=== PATIENT | female | born 1960 | race Caucasian/White ===

== ENCOUNTER 2024-06-21 09:40 | Outpatient (AMB) | payer MEDICAID, SELFPAY ==
[2024-06-21 10:05] VITALS: BP 154/92; PULSE 80; RESP 18; TEMP 36.5; O2SAT 97; BMI 37.8
--- NOTE | 2024-06-21 10:05 | PD.ORTHCLVIS ---
Vital signs 06/21/24 10:05 Height 1.68 m Height Method Stated Weight 106.396 kg Weight Measurement Method Standing Scale BMI 37.8 BP 154/92 H Blood Pressure Source Automatic Cuff Blood Pressure Location Right Upper Arm Position Sitting Respiration 18 Pulse 80 Pulse Source Monitor Temp 97.7 F Temp Source Temporal Artery Scan Pulse Oximetry (%) 97 Oxygen Delivery Method Room Air Med/Allergies Allergies & Medications Allergies No Known Drug Allergies Allergy (Verified 06/21/24 10:05) Medication Reconciliation Unobtainable 06/21/24 [History Confirmed 06/21/24] Exam Exam Patient is in no acute distress and is cooperative with the examination today. Patient has a normal mood and affect. Breathing is nonlabored. In no respiratory distress. Bilateral extremities were evaluated and demonstrates sensation intact to light touch. Palpable pedal pulses are present. No significant edema is present. Left knee incisions clean dry intact. Range of motion 0 to 110 degrees. Right knee demonstrates varus deformity. He is tender to palpation medially. Range of motion is 0 to 100 degrees Assessment and Plan Problem List (1) Arthritis of right knee: Status: Acute Plan: Patient is a 63-year-old female with right knee pain and right knee arthritis. The pain is affecting her quality life and happiness. She is tried some conservative therapy. We recommend injections as well as continued weight loss and anti-inflammatories. We will get her set up for a right knee cortisone injection at the next visit. 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 Level 3 ([id number]) MA Intake Visit Data Collection New Patient or Established: New Patient (never been to [facility]) Reason for Visit:: RIGHT KNEE PAIN Seen by Clinical Staff ONLY (RN/MA): No Verbal consent obtained for Telemed visit?: No Batter Scaler Required: No PCP or OBGYN visit in last 3 months: Yes Hx Now: No Do You Feel Safe at Home: Yes Authorities Contacted: N/A Questionairres Past Medical History Past Medical History Have you ever been diagnosed with any of the following: Cardiology Problems Hypertension: Yes Respiratory Problems Smoking: No Smoking Cessation Counseling: No Smoking Exposure: No Subjective Visit Visit for: new patient and knee Immunization / Flu Flu Vaccine in the Last 12 Months: Yes Flu Vaccine Exclusion Criteria: Already Received History of Present Illness Chief complaint: RIGHT KNEE PAIN Date of injury / onset of symptoms: 3 YEARS Date of 1st surgery (if applicable): LEFT KNEE DONE Kay is a pleasant 63-year-old female with right knee pain for 3 years. She had her left knee replaced in 2021 which is doing well. She has not had any physical therapy or injections in her right knee. She takes Advil. Nonweightbearing x-[facility] were done at [facility]. She is on Ozempic for diabetes, last A1c was 5.6%. BMI is 37%. She has been losing weight. Personal History Occupation: UNEMPLOYED Red flag PMH: BMI and none BMI Counceling provided: Yes Pain Pain level (0-10): 7 Pain duration: CONSTANT Pain location: inside (medial) Pain quality: sharp, aching and burning Pain timing: night, increases with activity and stairs Associated signs & symptoms: none Ambulatory data Ambulatory device: none Treatments Improvement with previous injections: No Improvement with PT: No Improvement with NSAIDS: no Review of Systems Review of Systems: All systems negative unless otherwise noted in HPI.
--- NOTE | 2024-06-21 10:26 | XR_ITS ---
Examination: Bilateral knees 2 views Right lateral knee left lateral knee 2 views Bilateral axial knees single view Technique: Bilateral AP knees standing single view, bilateral PA knees standing single view Standing right lateral knee left lateral knee 2 views Bilateral axial knees single view Exam date and time: June 21, 2024 sincerely hours Indications: Right knee pain beginning 3 years ago Findings: Moderate osteopenia Severe narrowing medial joint space right knee No fracture Total left knee arthroplasty. Satisfactory alignment. No fracture. No displacement of the prosthetic components Impression: Severe narrowing [id number] medial joint space right knee.
== END 2024-06-21 10:35 | disposition home or self-care (01) ==
PROVIDERS: Supervising Provider Orthopaedic Surgery Adult Reconstructive Orthopaedic Surgery; Visit Provider Orthopaedic Surgery Adult Reconstructive Orthopaedic Surgery
DX: M17.11 Unilateral primary osteoarthritis, right knee (principal); M25.561 Pain in right knee; I10 Essential (primary) hypertension; E11.9 Type 2 diabetes mellitus without complications
CPT/HCPCS: 73564; 99203; G0463

== ENCOUNTER 2024-07-07 14:46 | Outpatient (AMB) | payer MEDICAID, SELFPAY ==
--- NOTE | 2024-07-07 15:19 | PD.ORTHCLVIS ---
Vital signs 07/07/24 15:20 Height 1.68 m Height Method Stated Weight 105.233 kg Weight Measurement Method Standing Scale BMI 37.3 BP 165/101 H Blood Pressure Source Automatic Cuff Blood Pressure Location Left Upper Arm Position Sitting Respiration 19 Pulse 86 Pulse Source Monitor Temp 98.0 F Temp Source Temporal Artery Scan Pulse Oximetry (%) 97 Oxygen Delivery Method Room Air Med/Allergies Allergies & Medications Allergies No Known Drug Allergies Allergy (Verified 07/07/24 15:21) Medication Reconciliation Unobtainable 06/21/24 [History Confirmed 07/07/24] Exam Exam Patient is in no acute distress and is cooperative with the examination today. Patient has a normal mood and affect. Breathing is nonlabored. In no respiratory distress. Bilateral extremities were evaluated and demonstrates sensation intact to light touch. Palpable pedal pulses are present. No significant edema is present. Left knee incisions clean dry intact. Range of motion 0 to 110 degrees. Right knee demonstrates varus deformity. He is tender to palpation medially. Range of motion is 0 to 100 degrees Assessment and Plan Problem List (1) Arthritis of right knee: Status: Acute Plan: Patient is a 63-year-old female with right knee pain and right knee arthritis. The pain is affecting her quality life and happiness. She has tried some conservative therapy. We recommend injections as well as continued weight loss and anti-inflammatories. Recommend knee cortisone injection as patient would like to proceed with conservative treatment at this time. The risks and benefits of the procedure were reviewed with the patient and patient gave verbal consent to continue with the procedure. Procedure: performed by Dr. Dubon Using sterile technique the Right knee was thoroughly prepped with alcohol, and approximately 1 cc of Kenalog 40 mg/mL and 4 cc of 1% lidocaine was injected without resistance into the medial tibial femoral joint space. The patient tolerated the procedure. Office Procedures GNS Level of Care Nursing/Assessment Patient Status: Established Patient Nursing Assessment/Reassesment: Medication Reconciliation, Update PMH in EMR and Vital Signs Coordination of Care: Complex Care and Chronic Disease 1-5, Education Complex Pt/Fam, Consent,records obtained, informed consent, Results/Orders obtained and Staff clarify orders Established Patient Charge Established Patient Point Assignment: 95 Established Patient Point Charge: EP Level 3 (80-115) Surgical Proc/IM SQ injection Major Surgical Procedure: Yes (KNEE INJECTION ) Medication Given Medication Given Medication Given: Yes Documented Dose Given: 4 Route: Infiitration Medication Given Medication Given Medication Given: Yes Documented Dose Given: 1 Route: Infiitration Office Meds lidocaine HCl 10 mg/mL (1 %) injection solution Performing Provider: Joseph Dubon MD Performing Location: [facility] Administered by: Joseph Dubon MD on 07/07/24 16:12 Dose Route Admin Location Dispensed Lot Number Expiration Date ND Collection Officer 200 mg Infiltration KNEE 20 mL [id number] 09/26/27 17972-251-97 [facility] triamcinolone acetonide 40 mg/mL suspension for injection Performing Provider: Joseph Dubon MD Performing Location: [facility] Administered by: Joseph Dubon MD on 07/07/24 16:12 Dose Route Admin Location Dispensed Lot Number Expiration Date ND Collection Officer 40 mg IM KNEE 1 mL [id number] 01/25/26 5930-7826-33 TEVA PARENTERAL MA Intake Visit Data Collection New Patient or Established: Established Patient (seen at [facility] within 3 years) Reason for Visit:: XRAY RESULTS/KNEE PAIN Seen by Clinical Staff ONLY (RN/MA): No 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 PCP or OBGYN visit in last 3 months: Yes Hx Now: No Do You Feel Safe at Home: Yes Authorities Contacted: N/A Questionairres Past Medical History Past Medical History Have you ever been diagnosed with any of the following: Cardiology Problems Hypertension: Yes Respiratory Problems Smoking: No Smoking Cessation Counseling: No Smoking Exposure: No Subjective Visit Visit for: follow up visit and knee Immunization / Flu Flu Vaccine in the Last 12 Months: No Flu Vaccine Exclusion Criteria: No Exclusion Criteria History of Present Illness Chief complaint: RIGHT KNEE PAIN Date of injury / onset of symptoms: 3 YEARS Date of 1st surgery (if applicable): LEFT KNEE DONE Kay is a pleasant 63-year-old female with right knee pain for 3 years. She had her left knee replaced in 2021 which is doing well. She has not had any physical therapy or injections in her right knee. She takes Advil. Nonweightbearing x-rays were done at [facility]. She is on Ozempic for diabetes, last A1c was 5.6%. BMI is 37%. She has been losing weight. Personal History Occupation: UNEMPLOYED Red flag PMH: BMI and none BMI Counceling provided: Yes Pain Pain level (0-10): 9 Pain duration: CONSTANT Pain location: inside (medial) and outside (lateral) Pain quality: dull and aching Pain timing: night, increases with activity and stairs Associated signs & symptoms: none Ambulatory data Ambulatory device: none Treatments Improvement with previous injections: No Improvement with PT: No Improvement with NSAIDS: no Review of Systems Review of Systems: All systems negative unless otherwise noted in HPI.
[2024-07-07 15:20] VITALS: BP 165/101; PULSE 86; RESP 19; TEMP 36.7; O2SAT 97; BMI 37.3
== END 2024-07-07 15:35 | disposition home or self-care (01) ==
LOC: HODSRG 14:46
PROVIDERS: Supervising Provider Orthopaedic Surgery Adult Reconstructive Orthopaedic Surgery; Visit Provider Orthopaedic Surgery Adult Reconstructive Orthopaedic Surgery
DX: M17.11 Unilateral primary osteoarthritis, right knee (principal); E11.9 Type 2 diabetes mellitus without complications; I10 Essential (primary) hypertension
CPT/HCPCS: 20610; 99213; J3301; J3490; G0463

== ENCOUNTER 2024-08-18 10:09 | Outpatient (AMB) | payer MEDICAID, SELFPAY ==
[2024-08-18 10:39] VITALS: BP 154/95; PULSE 82; RESP 18; TEMP 36.8; O2SAT 91; BMI 36.6
--- NOTE | 2024-08-18 10:39 | ORTHONT_ITS ---
Vital signs 08/18/24 10:39 Height 1.68 m Height Method Stated Weight 103.561 kg Weight Measurement Method Standing Scale BMI 36.6 BP 154/95 H Blood Pressure Source Automatic Cuff Blood Pressure Location Right Upper Arm Position Sitting Respiration 18 Pulse 82 Pulse Source Monitor Temp 98.3 F Temp Source Temporal Artery Scan Pulse Oximetry (%) 91 L Oxygen Delivery Method Room Air Med/Allergies Allergies & Medications Allergies No Known Drug Allergies Allergy (Verified 08/18/24 10:40) Medication Reconciliation Unobtainable 06/21/24 [History Confirmed 08/18/24] Exam Exam Patient is in no acute distress and is cooperative with the examination today. Patient has a normal mood and affect. Breathing is nonlabored. In no respiratory distress. Bilateral extremities were evaluated and demonstrates sensation intact to light touch. Palpable pedal pulses are present. No significant edema is present. Left knee incisions clean dry intact. Range of motion 0 to 110 degrees. Right knee demonstrates varus deformity. He is tender to palpation medially. Range of motion is 0 to 100 degrees Right knee xrays demonstrate significant joint space narrowing and osteophytes. Left knee demonstrates a cemented total knee replacement good alignment and position Assessment and Plan Problem List (1) Arthritis of right knee: Status: Acute Plan: Patient is a 63-year-old female with right knee pain and right knee arthritis. The pain is affecting her quality life and happiness. She has tried some conservative therapy. The last injection did not provide great relief and only lasted less than a month. She is also tried anti-inflammatories and home exercises. The nature and purpose of the total knee replacement, alternative method(s) of treatment, the material risks involved, and the possibility of complications were fully explained to the patient. The patient does NOT have any of the following contraindications to TKA: - Active infection of the knee joint, OR - Active systemic bacteremia, OR - Active skin infection or open wound at surgical site, OR - Neuropathic arthritis, OR - Severe, rapidly progressive neurological disease, OR - Severe medical condition that makes risks of surgery outweigh the potential benefit The patient was told the most common risks and complications associated with a total knee replacement include, but are not limited to: blood clots in the leg, fatal pulmonary embolism, dislocation of the prosthesis, intraoperative and postoperative fractures of the femur or tibia, infection, failure of the prosthesis or grafting materials, complications from anesthesia, reactions to blood transfusions, postoperative leg length inequality, instability of the knee replacement, nerve damage or injury, vascular injury, delayed wound healing, infection, other injury or even . In addition, there are risks associated with anesthesia given during this operation. Also, the patient was told that after undergoing a total knee replacement there may still be persistent pain or disability. The patient was informed that the success of this operation in part depends upon the mechanical devices which are going to be implanted and that these devices can fail or malfunction, and may need to be repaired or replaced and there are no guarantees as to the longevity of this device or its parts and that it or its parts could fail prematurely. The patient was also notified that during the course of surgery, there may be a need to use bone graft from donors, and that any bone graft used will be carefully screened for communicable diseases, including AIDS, hepatitis, Alberto-Creutzfeldt, or other diseases, but despite the screening procedures, there is a small chance that they could contract one of these diseases. Finally, the patient was asked to follow completely and fully with all advice and recommended treatments, and that recovery and ultimate outcome are affected by their compliance with recommended treatment. We discussed the risks, benefits and treatment alternatives, and the patient is interested in proceeding with surgery. We will try to set this up as expeditiously as possible. Office Procedures GNS Level of Care Nursing/Assessment Patient Status: Established Patient Nursing Assessment/Reassesment: Medication Reconciliation, Update PMH in EMR and Vital Signs Coordination of Care: Complex Care and Chronic Disease 1-5, Education Complex Pt/Fam, Consent,records obtained, informed consent, Lab and Imaging orders, Results/Orders obtained and Staff clarify orders Established Patient Charge Established Patient Point Assignment: 110 Established Patient Point Charge: EP Level 3 (80-115) MA Intake Visit Data Collection New Patient or Established: Established Patient (seen at [facility] within 3 years) Reason for Visit:: KNEE PAIN Seen by Clinical Staff ONLY (RN/MA): No Verbal consent obtained for Telemed visit?: No 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 PCP or OBGYN visit in last 3 months: Yes Hx Now: No Do You Feel Safe at Home: Yes Authorities Contacted: N/A Questionairres Past Medical History Past Medical History Have you ever been diagnosed with any of the following: Cardiology Problems Hypertension: Yes Respiratory Problems Smoking: No Smoking Cessation Counseling: No Smoking Exposure: No Subjective Visit Visit for: follow up visit and knee Immunization / Flu Flu Vaccine in the Last 12 Months: No Flu Vaccine Exclusion Criteria: No Exclusion Criteria History of Present Illness Chief complaint: KNEE PAIN Date of injury / onset of symptoms: 3 YEARS Date of 1st surgery (if applicable): LEFT KNEE DONE Kay is a pleasant 63-year-old female with right knee pain for 3 years. She had her left knee replaced in 2021 which is doing well. She has not had any physical therapy or injections in her right knee. She takes Advil. She is on Ozempic for diabetes, last A1c was 5.6%. BMI is 37%. She has been losing weight. She has tried ibuprofen as well. She has done home exercises for several months and is very active. Personal History Occupation: RETIRED Red flag PMH: BMI BMI Counceling provided: Yes Pain Pain level (0-10): 5 Pain duration: ALL DAY Pain location: anterior Pain quality: dull and aching Pain timing: increases with activity and stairs Associated signs & symptoms: none Ambulatory data Ambulatory device: none Treatments Improvement with previous injections: No Improvement with PT: No Improvement with NSAIDS: no Review of Systems Review of Systems: All systems negative unless otherwise noted in HPI.
== END 2024-08-18 10:57 | disposition home or self-care (01) ==
LOC: HODSRG 10:09
PROVIDERS: Supervising Provider Orthopaedic Surgery Adult Reconstructive Orthopaedic Surgery; Visit Provider Orthopaedic Surgery Adult Reconstructive Orthopaedic Surgery
DX: M17.11 Unilateral primary osteoarthritis, right knee (principal); M25.561 Pain in right knee; I10 Essential (primary) hypertension; E11.9 Type 2 diabetes mellitus without complications
CPT/HCPCS: 99213; G0463

== ENCOUNTER 2024-09-20 13:54 | Outpatient (AMB) | payer MEDICAID, SELFPAY ==
[2024-09-20 14:18] VITALS: BP 115/75; PULSE 76; RESP 18; TEMP 36.7; O2SAT 94; BMI 36.1
--- NOTE | 2024-09-20 14:18 | ORTHONT_ITS ---
Vital signs 09/20/24 14:18 Height 1.68 m Height Method Stated Weight 102.058 kg Weight Measurement Method Standing Scale BMI 36.1 BP 115/75 Blood Pressure Source Automatic Cuff Blood Pressure Location Right Upper Arm Position Sitting Respiration 18 Pulse 76 Pulse Source Monitor Temp 98.0 F Temp Source Temporal Artery Scan Pulse Oximetry (%) 94 L Oxygen Delivery Method Room Air Med/Allergies Allergies & Medications Allergies No Known Drug Allergies Allergy (Verified 09/20/24 14:18) Medication Reconciliation Unobtainable 06/21/24 [History Confirmed 09/20/24] Exam Exam Patient is in no acute distress and is cooperative with the examination today. Patient has a normal mood and affect. Breathing is nonlabored. In no respiratory distress. Bilateral extremities were evaluated and demonstrates sensation intact to light touch. Palpable pedal pulses are present. No significant edema is present. Left knee incisions clean dry intact. Range of motion 0 to 110 degrees. Right knee demonstrates varus deformity. He is tender to palpation medially. Range of motion is 0 to 100 degrees Right knee xrays demonstrate significant joint space narrowing and osteophytes. Left knee demonstrates a cemented total knee replacement good alignment and position Assessment and Plan Problem List (1) Arthritis of right knee: Status: Acute Plan: Patient is a 63-year-old female with right knee pain and right knee arthritis. The pain is affecting her quality life and happiness. She has tried some conservative therapy. The last injection did not provide great relief and only lasted less than a month. She is also tried anti-inflammatories and home exercises. The nature and purpose of the total knee replacement, alternative method(s) of treatment, the material risks involved, and the possibility of complications were fully explained to the patient. The patient does NOT have any of the following contraindications to TKA: - Active infection of the knee joint, OR - Active systemic bacteremia, OR - Active skin infection or open wound at surgical site, OR - Neuropathic arthritis, OR - Severe, rapidly progressive neurological disease, OR - Severe medical condition that makes risks of surgery outweigh the potential benefit The patient was told the most common risks and complications associated with a total knee replacement include, but are not limited to: blood clots in the leg, fatal pulmonary embolism, dislocation of the prosthesis, intraoperative and postoperative fractures of the femur or tibia, infection, failure of the prosthesis or grafting materials, complications from anesthesia, reactions to blood transfusions, postoperative leg length inequality, instability of the knee replacement, nerve damage or injury, vascular injury, delayed wound healing, infection, other injury or even . In addition, there are risks associated with anesthesia given during this operation. Also, the patient was told that after undergoing a total knee replacement there may still be persistent pain or disability. The patient was informed that the success of this operation in part depends upon the mechanical devices which are going to be implanted and that these devices can fail or malfunction, and may need to be repaired or replaced and there are no guarantees as to the longevity of this device or its parts and that it or its parts could fail prematurely. The patient was also notified that during the course of surgery, there may be a need to use bone graft from donors, and that any bone graft used will be carefully screened for communicable diseases, including AIDS, hepatitis, Alberto-Creutzfeldt, or other diseases, but despite the screening procedures, there is a small chance that they could contract one of these diseases. Finally, the patient was asked to follow completely and fully with all advice and recommended treatments, and that recovery and ultimate outcome are affected by their compliance with recommended treatment. We discussed the risks, benefits and treatment alternatives, and the patient is interested in proceeding with surgery. We will try to set this up as expeditiously as possible. Office Procedures GNS Level of Care Nursing/Assessment Patient Status: Established Patient Nursing Assessment/Reassesment: Medication Reconciliation, Update PMH in EMR and Vital Signs Coordination of Care: Complex Care and Chronic Disease 1-5, Education Complex Pt/Fam, Consent,records obtained, informed consent, 1 Ins Authorization, Results/Orders obtained and Staff clarify orders Established Patient Charge Established Patient Point Assignment: 110 Established Patient Point Charge: EP Level 3 (80-115) MA Intake Visit Data Collection New Patient or Established: Established Patient (seen at [facility] within 3 years) Reason for Visit:: PRE-OP Seen by Clinical Staff ONLY (RN/MA): No Verbal consent obtained for Telemed visit?: No 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: No PCP or OBGYN visit in last 3 months: Yes Hx Now: No Do You Feel Safe at Home: Yes Authorities Contacted: N/A Questionairres Past Medical History Past Medical History Have you ever been diagnosed with any of the following: Cardiology Problems Hypertension: Yes Respiratory Problems Smoking: No Smoking Cessation Counseling: No Smoking Exposure: No Subjective Visit Visit for: follow up visit and knee Immunization / Flu Flu Vaccine in the Last 12 Months: Yes Flu Vaccine Exclusion Criteria: No Exclusion Criteria and Already Received History of Present Illness Chief complaint: PRE-OP Date of injury / onset of symptoms: 3 YEARS Date of 1st surgery (if applicable): LEFT KNEE DONE Kay is a pleasant 63-year-old female with right knee pain for 3 years. She had her left knee replaced in 2021 which is doing well. She has not had any physical therapy or injections in her right knee. She takes Advil. She is on Ozempic for diabetes, last A1c was 5.6%. BMI is 37%. She has been losing weight. She has tried ibuprofen as well. She has done home exercises for several months and is very active. Personal History Occupation: RETIRED Red flag PMH: BMI BMI Counceling provided: Yes Pain Pain level (0-10): 8 Pain duration: ALL DAY Pain location: inside (medial), outside (lateral), anterior and posterior Pain quality: sharp, dull and aching Pain timing: increases with activity and stairs Associated signs & symptoms: none Ambulatory data Ambulatory device: none Treatments Improvement with previous injections: No Improvement with PT: No Improvement with NSAIDS: no Review of Systems Review of Systems: All systems negative unless otherwise noted in HPI.
== END 2024-09-20 14:40 | disposition home or self-care (01) ==
LOC: HODSRG 13:54
PROVIDERS: Supervising Provider Orthopaedic Surgery Adult Reconstructive Orthopaedic Surgery; Visit Provider Orthopaedic Surgery Adult Reconstructive Orthopaedic Surgery
DX: M17.11 Unilateral primary osteoarthritis, right knee (principal); M25.561 Pain in right knee; E11.9 Type 2 diabetes mellitus without complications
CPT/HCPCS: 99213; G0463

== ENCOUNTER → 2024-09-28 | Outpatient (CLI) | payer MEDICAID, SELFPAY ==
--- NOTE | 2024-09-28 09:50 | XR_ITS ---
Examination: CT right lower extremity without intravenous contrast, without contrast. 2-D sagittal reconstructions. 2-D coronal reconstructions. 3-D reconstructions. Date and time of exam:September 28, 2024 1023 hours INDICATIONS: Diagnosis right knee unilateral osteoarthritis right knee pain 2 years CTDI: vol (mGy):14.7 DLP: (mGycm):72 Technique: Multiple 1.25 mm axial sections of the right lower extremity without intravenous contrast have been obtained. 2-D sagittal and coronal reconstructions have been obtained. 3-D reconstructions have been obtained. Low dose protocols were performed. One or more of the following dose reduction techniques were used; automated exposure control, adjustment of the mA and/or KV according to patient size, use of iterative reconstruction technique. Findings: Significant osteopenia Moderate narrowing right hip joint No hip fracture or hip dislocation No avascular necrosis Advanced right knee tricompartment osteoarthritis Severe narrowing medial joint space Osteochondral defect in the medial tibial plateau, 7.5 mm No patellar dislocation IMPRESSION: Advanced right knee tricompartment osteoarthritis including severe narrowing medial joint space
== END | disposition home or self-care (01) ==
PROVIDERS: Referring Provider Orthopaedic Surgery Adult Reconstructive Orthopaedic Surgery; Visit Provider Orthopaedic Surgery Adult Reconstructive Orthopaedic Surgery
DX: M17.11 Unilateral primary osteoarthritis, right knee (principal); M25.861 Other specified joint disorders, right knee
CPT/HCPCS: 73700

== ENCOUNTER 2024-10-06 09:50 | Day surgery (SDC) | payer MEDICAID, SELFPAY ==
[2024-10-04 10:14] VITALS: BMI 35.9
[2024-10-04 11:26] LABS: Basophils # (Auto) 0.1 Thou/mm3 (0.0-0.2); Basophils % (Auto) 1 % (0-2.5); Eosinophils # (Auto) 0.3 Thou/mm3 (0.0-0.5); Eosinophils % (Auto) 4 % (0-10); Hematocrit 38.5 % (36.0-46.0); Hemoglobin 13.2 g/dL (12.0-16.0); Immature Granulocytes % (Auto) 0 % (0-0); Immature Granulocytes Auto 0.01 Thou/mm3 (0.00-0.00); Lymphocytes # (Auto) 2.1 Thou/mm3 (1.0-4.8); Lymphocytes % (Auto) 28 % (10-50); Mean Corpuscular HGB Conc 34.3 g/dl (31.0-37.0); Mean Corpuscular Hemoglobin 30.1 pg (25.0-35.0); Mean Corpuscular Volume 88 fL (80-100); Monocytes # (Auto) 0.5 Thou/mm3 (0.0-0.8); Monocytes % (Auto) 6 % (0-12); Neutrophils # (Auto) 4.4 Thou/mm3 (1.8-7.7); Neutrophils % (Auto) 61 % (37-80); Nucleated Red Blood Cell % 0 /100 WBC (0); Platelet Count 308 Thou/mm3 (140-440); RDW Standard Deviation 43.9 fL (36.4-46.3); Red Blood Count 4.39 Miln/mm3 (4.00-5.20); White Blood Count 7.3 Thou/mm3 (3.6-11.0)
[2024-10-04 11:34] LABS: Partial Thromboplastin Time 28.7 Seconds (22.0-36.0); Prothrombin Time 11.3 Seconds (9.0-12.2)
[2024-10-04 11:38] LABS: Alanine Aminotransferase 13 U/L (10-49); Albumin, Serum 4.9 gm/dL (3.4-4.8); Alkaline Phosphatase 136 U/L (46-116); Anion Gap 10 (7-16); BUN/Creatinine Ratio 14 Ratio (12-20); Bilirubin,Total 0.6 mg/dL (0.3-1.2); Blood Urea Nitrogen 11 mg/dL (9-23); Calcium 10.3 mg/dL (8.3-10.6); Calcium (Corrected) 10.3 mg/dL (8.5-10.1); Carbon Dioxide 24.3 mMol/L (20.0-31.0); Chloride 104 mMol/L (98-107); Creatinine (Component) 0.8 mg/dL (0.6-1.3); Estimated Creatinine Clearance 86.3 mL/min (>60); Globulin 2.5 gm/dL (2.3-3.5); Glucose 117 mg/dL (74-106); Osmolality,Calculated 276 (275-295); Potassium 4.6 mMol/L (3.4-5.1); Sodium 138 mMol/L (136-145); Total Protein 7.4 gm/dL (5.7-8.2); eGFR > 60 See Note
[2024-10-06] VITALS (12 sets, daily range): BP systolic 158–170; BP diastolic 88–101; PULSE 68–97; RESP 12–23; TEMP 36.4–36.6; O2SAT 95–100; BMI 35.7
[2024-10-06] MEDS: ACETAMINOPHEN 325 MG TABLET 650 MG PO (12:16)
[2024-10-06] MEDS: PREGABALIN 75 MG CAPSULE PO (12:16)
[2024-10-06] MEDS: MELOXICAM 7.5 MG TABLET PO (12:17)
[2024-10-06] MEDS: RINGERS LACTATED 1000 ML 1,000 ML 20 ML IV (12:17)
--- NOTE | 2024-10-06 14:16 | ESOP_ITS ---
Date of Procedure 10/06/24 Pre Op Diagnosis right knee osteoarthritis Post Op Diagnosis right knee osteoarthritis Procedure right [place] total knee replacement Findings full thickness cartilage loss and osteophytes Procedure Description Indication: The patient is a 63 year old who has a long history of right knee pain. X-rays show degenerative arthritis involving the knee. Over the past several years the patient has had increasing pain, progressive limitation in function. He has failed conservative measures including activity modification, physical therapy, injections, anti-inflammatories, and assistive devices. After a lengthy discussion of the risks and benefits, the patient presents now for total knee replacement. The nature and purpose of the total knee replacement, alternative method(s) of treatment, the material risks involved, and the possibility of complications were fully explained to the patient. The patient was told the most common risks and complications associated with a total knee replacement include, but are not limited to blood clots in the leg, fatal pulmonary embolism, dislocation of the prosthesis, intraoperative and postoperative fractures of the femur or tibia, infection, failure of the prosthesis or grafting materials, complications from anesthesia, reactions to blood transfusions, postoperative leg length inequality, instability of the knee replacement, nerve damage or injury, vascular injury, delayed wound healing, infections, other injury or even . In addition, there are risks associated with anesthesia given during this operation, temporary or permanent numbness on the skin lateral to the incision can be a complication unique to total knee surgery, and kneeling can be painful after knee replacement surgery. Also, the patient was told that after undergoing a total knee replacement there may still be pain or disability. We discussed with the patient that we will be using a robot-assisted technology. We discussed that there is a possibility of converting to manual instrumentation. The patient was informed that the success of this operation in part depends upon the mechanical devices which are going to be implanted and that these devices can fail or malfunction, and may need to be repaired or replaced and there are no guarantees as to the longevity of this device or its part and that it or its parts could fail prematurely. Finally, the patient was asked to follow completely and fully with all advice and recommended treatments, and that recovery and ultimate outcome are affected by their compliance with recommended treatment. Surgical technique: Patient was marked and consented in the pre-operative area. The patient was brought to the operating room and placed on the operating table in a supine position. Prior to positioning, a timeout procedure was performed between the surgeon, the anesthesiologist, and the nursing staff where the patient and the operative side were identified and confirmed. After adequate general anesthetic was obtained, the right lower extremity was prepped and draped in the usual sterile fashion. A weight based dose of Cefazolin were administered within 1 hour prior to incision. The robot was preregistered and calirated before the incision. The extremity was exsanguinated with an esmarch badge and tourniquet inflated to 250mmHg. A midline incision was made. A median parapatellar arthrotomy was made. The patella was subluxed laterally. A medial release was performed to expose the medial tibia. His femoral and tibial pins were placed through an intra incisional manner for both cases. Every effort was made to ensure that the distalmost aspect of the pin was hung in the second cortex. The arrays were then tightened several times to ensure that it was fixed for the remainder of the case. Both femoral and tibial checkpoints were then placed. We then went through the registration process of the bone. We then assessed the knee deformity and attempted to correct it. We also used the robot to aid in judging laxity in both extension and flexion. Final based on laxity and alignment we changed the preoperative assessment to obtain proper proper implant positioning and to correct deformity. Attention was then placed to the tibia. We made a tibial cut using the robot ensuring that both the MCL and the patella tendon were protected with retractors. We then went to the femur and made the posterior cut followed by the anterior cut and the anterior chamfer. The bone was then removed and we made a distal femur cut and a posterior chamfer cut. We verified all cuts. A trial reduction was performed with a size 4 femoral component and a size 4 ] keeled tibial component. The patella tracked centrally, and no lateral retinacular release was necessary. The trial implants were removed. The arrays, pins, and checkpoints were all removed. We performed a verification that all pins were removed. The cut bone surfaces were lavaged. A size4 right femoral component, a size 4] keeled tibial component were impacted into position. The knee was felt to be well balanced in the sagittal and coronal plane. The final 10mm cruciate- substituting articular insert was impacted into the tibial tray. The knee was brought out to full extension, flexed up to 120 degrees. It was stable to varus and valgus stress and appropriately balanced in flexion and extension. The wounds were copiously irrigated following deflation of tourniquet. The medial retinaculum was reapproximated with #1 vicryl and quill. The subcutaneous tissues were closed with 0 and 2-0 interrupted Vicryl. The skin was closed with 3-0 Monofilament V loc suture. A sterile dressing was applied. The patient was transferred to a bed and brought to recovery in stable condition. The patient tolerated the procedure well. There were no intraoperative complications. Sponge and needle counts were correct times 2. As the attending surgeon, Chirag tidwell I was present and performed the entire operation. Grafts/Implants Size 4 CR Femur Size 4 Tibia 10]mm poly CS Anesthesia GETA Implants saloni Pathology / specimen None Estimated Blood Loss 150 Condition Stable Disposition same day Surgeon Joseph Dubon MD Surgical Staff Operation Date: 10/06/24 14:30 <No data on this case meets the specified criteria>
--- NOTE | 2024-10-06 14:16 | XR_ITS ---
Examination: Right knee 2 views TECHNIQUE: AP lateral right knee 2 views Date and time: October 06, 2024 1654 hours INDICATIONS: Postop knee replacement FINDINGS: Total right knee arthroplasty. Satisfactory alignment No fracture IMPRESSION: Total right knee arthroplasty with satisfactory alignment
--- NOTE | 2024-10-06 16:29 | SUR.PHASEI ---
1607: Pt received in [facility] via gurney. Report from Nicholas JAIME and Marion LANDRUM (student), Nabeel LANDRUM. Pt groggy. Is responsive to name. Resp even, unlabored. VS stable. Dressing to right knee dry, clean, intact. Bilateral pedal pulses strong, regular. No c/o pain. 1620: Pt awake with c/o pain to right knee. Rates pain level 10/10. Pt received in OR Fentanyl 400mcg., Toradol 30 mg, and Tylenol, Aductor canal block. Anesthesia at bedside to assess pt.
--- NOTE | 2024-10-06 17:33 | SUR.PHASEII ---
1640: Anesthesia at bedside administering 2nd block with pt's consent. Pt tolerated procedure with no complaints. 1650: Pt stated she is feeling relief from pain. BP remains stable elevated but is within pre-procedure baseline. Other VS stable. Dressing remains dry, clean, intact. Bilateral pedal pulses strong, regular. 1700: Radiology here to take ordered x-rays. Pt tolerated procedure with no complaints voiced. 1730: Pt stated she needed to void. Purwick external catheter placed.
--- NOTE | 2024-10-06 17:45 | SUR.PHASEII ---
Received report on pt. s/p surgery from Aracelis JAIME. Pt. is stable, VSS, no c/o pain or nausea at this time. dressing to right knee CDI, pedal pulses palpable antoinette.
--- NOTE | 2024-10-06 18:25 | SUR.PHASEII ---
Pt. worked with PT López, THEODORE Dawn signed off on pt. to be discharged.
--- NOTE | 2024-10-06 18:53 | SUR.PHASEII ---
Pt. meets criteria for discharge, VSS, no c/o pain or nausea at this time, dressing to right knee CDI, no active bleeding or swelling noted, pedal pulses present and palpable, IV discontinued without complications, pt. is tolerating oral liquids. Pt.'s son at bedside, provided discharge instructions to pt. and pt.'s son, verbalized understanding. Escorted pt. via w/c with all of belongings to vehicle by staff.
== END 2024-10-06 18:53 | disposition home or self-care (01) ==
PROVIDERS: Anesthesiology; Referring Provider Orthopaedic Surgery Adult Reconstructive Orthopaedic Surgery; Visit Provider Orthopaedic Surgery Adult Reconstructive Orthopaedic Surgery
PROC: (CPT 27447; principal; 2024-10-06 14:15)
DX: M17.11 Unilateral primary osteoarthritis, right knee (principal); M25.761 Osteophyte, right knee
CPT/HCPCS: 27447; 20985; 36415; 73560; 80053; 85025; 85610; 85730; 97162; A4217; C1713; C1776; J0131; J0690; J1100; J1885; J2371; J2405; J2704; J2795; J3010; J7120; J7999; A4648; A4649; A9270

== ENCOUNTER 2024-10-20 10:42 | Outpatient (AMB) | payer MEDICAID, SELFPAY ==
[2024-10-20 10:57] VITALS: BP 153/89; PULSE 103; RESP 17; TEMP 36.7; O2SAT 96; BMI 35.6
--- NOTE | 2024-10-20 10:57 | ORTHONT_ITS ---
Vital signs 10/20/24 10:57 Height 1.68 m Height Method Stated Weight 100.244 kg Weight Measurement Method Estimated by Patient BMI 35.6 BP 153/89 H Blood Pressure Source Automatic Cuff Blood Pressure Location Right Upper Arm Position Sitting Respiration 17 Pulse 103 H Pulse Source Monitor Temp 98.1 F Temp Source Temporal Artery Scan Pulse Oximetry (%) 96 Oxygen Delivery Method Room Air Med/Allergies Allergies & Medications Allergies No Known Drug Allergies Allergy (Verified 10/20/24 10:58) Medication Reconciliation atorvastatin 10 mg tablet 10 mg PO DAILY 10/04/24 [History Confirmed 10/20/24] telmisartan 40 mg tablet 40 mg PO DAILY 10/04/24 [History Confirmed 10/20/24] tirzepatide (weight loss) 2.5 mg/0.5 mL subcutaneous pen injector (Zepbound) 2.5 mg subcut .week 10/04/24 [History Confirmed 10/20/24] aspirin 81 mg tablet,delayed release 81 mg PO BID #60 tabs 10/06/24 [Rx Confirmed 10/20/24] doxycycline hyclate 100 mg tablet 100 mg PO BID #14 tabs 10/06/24 [Rx Confirmed 10/20/24] gabapentin 300 mg capsule 300 mg PO .qhs #30 caps 10/06/24 [Rx Confirmed 10/20/24] sennosides 8.6 mg-docusate sodium 50 mg tablet (Senna-S) 1 tab-cap PO QDAY #30 tabs 10/06/24 [Rx Confirmed 10/20/24] cyclobenzaprine 5 mg tablet 5 mg PO TID PRN muscle spasm #60 tabs 10/10/24 [Rx Confirmed 10/20/24] hydrocodone 5 mg-acetaminophen 325 mg tablet 1 tab PO Q6H PRN pain #28 tabs 10/15/24 [Rx Confirmed 10/20/24] Exam Exam Patient is in no acute distress and is cooperative with the examination today. Patient has a normal mood and affect. Breathing is nonlabored. In no respiratory distress. Bilateral extremities were evaluated and demonstrates sensation intact to light touch. Palpable pedal pulses are present. No significant edema is present. Left knee incisions clean dry intact. Range of motion 0 to 110 degrees. Right knee incision is c/d/i Assessment and Plan Problem List (1) Arthritis of right knee: Status: Acute Plan: Patient is a 63-year-old female with right knee pain and right knee arthritis s/p R TKA. We will see her in approximately 4 weeks for routine followup Office Procedures GNS Level of Care Nursing/Assessment Patient Status: Established Patient Nursing Assessment/Reassesment: Medication Reconciliation, Update PMH in EMR and Vital Signs Coordination of Care: Complex Care and Chronic Disease 1-5, Education Complex Pt/Fam, Consent,records obtained, informed consent, Results/Orders obtained and Staff clarify orders Established Patient Charge Established Patient Point Assignment: 95 Established Patient Point Charge: EP Level 3 (80-115) MA Intake Visit Data Collection New Patient or Established: Established Patient (seen at [facility] within 3 years) Reason for Visit:: 2 WEEK POST OP RIGHT TKA Seen by Clinical Staff ONLY (RN/MA): No Damage Inside Adjuster Required: No PCP or OBGYN visit in last 3 months: Yes Hx Now: No Do You Feel Safe at Home: Yes Authorities Contacted: N/A Questionairres Past Medical History Past Medical History Have you ever been diagnosed with any of the following: Neurological Problems Seizures: No Cardiology Problems Myocardial Infarction: Yes (2015) Hypercholesterolemia: Yes Congestive Heart Failure: No Hypertension: Yes Varicose Veins: Yes Respiratory Problems Chronic Obstructive Pulmonary Disease (COPD): No Asthma: Yes Smoking: No Smoking Cessation Counseling: No Smoking Exposure: No Stomache/Intestinal Problems Pancreatitis: Yes Obesity: Yes Genital/Urinary Problems Renal Disease: No Reproductive Problems Previous Pregnancies: Yes (4) Musculoskeletal Problems Arthritis: Yes Head,Eye,Nose,Throat Problems Cataracts: Yes Endocrine Problems Diabetes Mellitus Type 1: No Diabetes Mellitus Type 2: Yes Other Problems Hospitalization: Yes (surgery) Shingles: No Blood Transfusions: No Anesthesia Reactions: No Chicken Pox: Yes Cancer: No Subjective Visit Visit for: follow up visit, post op #1 and knee (RIGHT KNEE TKA ) Immunization / Flu Flu Vaccine in the Last 12 Months: Yes Flu Vaccine Exclusion Criteria: Already Received History of Present Illness Chief complaint: PRE-OP Date of injury / onset of symptoms: 3 YEARS Date of 1st surgery (if applicable): LEFT KNEE DONE Kay is a pleasant 63-year-old female with right knee pain for 3 years. She is doing well s/p R TKA Personal History Occupation: RETIRED Red flag PMH: none BMI Counceling provided: Yes Pain Pain level (0-10): 10 Pain duration: 2 WEEKS Pain location: anterior Pain quality: sharp and burning Pain timing: night and increases with activity Associated signs & symptoms: numbness and stiffness Ambulatory data Ambulatory device: walker Walking distance (minutes): 1 Treatments Number of previous injections: 0 Improvement with previous injections: No Number of Physical Therapy sessions: 2 (POST SURGERY PHYSICAL THREAPY ) Improvement with PT: Yes Improvement with NSAIDS: n/a Review of Systems Review of Systems: All systems negative unless otherwise noted in HPI.
== END 2024-10-20 11:07 | disposition home or self-care (01) ==
LOC: HODSRG 10:42
PROVIDERS: Supervising Provider Orthopaedic Surgery Adult Reconstructive Orthopaedic Surgery; Visit Provider Orthopaedic Surgery Adult Reconstructive Orthopaedic Surgery
DX: M17.11 Unilateral primary osteoarthritis, right knee (principal); Z96.651 Presence of right artificial knee joint; I10 Essential (primary) hypertension; E78.00 Pure hypercholesterolemia, unspecified; I25.2 Old myocardial infarction; E11.9 Type 2 diabetes mellitus without complications
CPT/HCPCS: 99213; G0463

== ENCOUNTER 2024-11-17 10:32 | Outpatient (AMB) | payer MEDICAID, SELFPAY ==
--- NOTE | 2024-11-17 10:49 | XR_ITS ---
Examination: Bilateral knees single view standing AP Right knee PA lateral axial 3 views TECHNIQUE: Bilateral AP knees standing single view Right knee PA flexion standing, lateral standing, axial right knee 3 views total 4 views Date and time: November 18, 2019 5:11 AM INDICATIONS: Status post right knee replacement October 06, 2024 FINDINGS: Moderate osteopenia. Bilateral total knee arthroplasties with satisfactory alignment No loosening of the prosthetic components No right patellar dislocation IMPRESSION: Bilateral total knee arthroplasties with satisfactory alignment
--- NOTE | 2024-11-17 10:52 | ORTHONT_ITS ---
Vital signs 11/17/24 10:57 Height 1.68 m Height Method Stated Weight 96.247 kg Weight Measurement Method Standing Scale BMI 34.1 BP 117/79 Blood Pressure Source Automatic Cuff Blood Pressure Location Left Upper Arm Position Sitting Respiration 18 Pulse 85 Pulse Source Monitor Temp 97.8 F Temp Source Temporal Artery Scan Pulse Oximetry (%) 96 Oxygen Delivery Method Room Air Med/Allergies Allergies & Medications Allergies No Known Drug Allergies Allergy (Verified 11/17/24 10:53) Medication Reconciliation atorvastatin 10 mg tablet 10 mg PO DAILY 10/04/24 [History Confirmed 11/17/24] telmisartan 40 mg tablet 40 mg PO DAILY 10/04/24 [History Confirmed 11/17/24] tirzepatide (weight loss) 2.5 mg/0.5 mL subcutaneous pen injector (Zepbound) 2.5 mg subcut .week 10/04/24 [History Confirmed 11/17/24] aspirin 81 mg tablet,delayed release 81 mg PO BID #60 tabs 10/06/24 [Rx Confirmed 11/17/24] doxycycline hyclate 100 mg tablet 100 mg PO BID #14 tabs 10/06/24 [Rx Confirmed 11/17/24] gabapentin 300 mg capsule 300 mg PO .qhs #30 caps 10/06/24 [Rx Confirmed 11/17/24] sennosides 8.6 mg-docusate sodium 50 mg tablet (Senna-S) 1 tab-cap PO QDAY #30 tabs 10/06/24 [Rx Confirmed 11/17/24] cyclobenzaprine 5 mg tablet 5 mg PO TID PRN muscle spasm #60 tabs 10/10/24 [Rx Confirmed 11/17/24] hydrocodone 5 mg-acetaminophen 325 mg tablet 1 tab PO Q6H PRN pain #28 tabs 10/15/24 [Rx Confirmed 11/17/24] Exam Exam Patient is in no acute distress and is cooperative with the examination today. Patient has a normal mood and affect. Breathing is nonlabored. In no respiratory distress. Bilateral extremities were evaluated and demonstrates sensation intact to light touch. Palpable pedal pulses are present. No significant edema is present. Left knee incisions clean dry intact. Range of motion 0 to 110 degrees. Right knee incision is c/d/i. ROM is 0-100 degrees Assessment and Plan Problem List (1) Arthritis of right knee: Status: Acute Plan: Patient is a 63-year-old female with right knee pain and right knee arthritis s/p R TKA. We will see her in approximately 6 weeks for routine followup Office Procedures GNS Level of Care Nursing/Assessment Patient Status: Established Patient Nursing Assessment/Reassesment: Medication Reconciliation, Update PMH in EMR and Vital Signs Coordination of Care: Complex Care and Chronic Disease 1-5, Education Complex Pt/Fam, Consent,records obtained, informed consent, Results/Orders obtained and Staff clarify orders Established Patient Charge Established Patient Point Assignment: 95 Established Patient Point Charge: EP Level 3 (80-115) MA Intake Visit Data Collection Reason for Visit:: 6 WEEK POST OP F/U Seen by Clinical Staff ONLY (RN/MA): No Power Electronics Research Engineer Required: No PCP or OBGYN visit in last 3 months: Yes Hx Now: No Do You Feel Safe at Home: Yes Authorities Contacted: N/A Questionairres Past Medical History Past Medical History Have you ever been diagnosed with any of the following: Neurological Problems Seizures: No Cardiology Problems Myocardial Infarction: Yes (2015) Hypercholesterolemia: Yes Congestive Heart Failure: No Hypertension: Yes Varicose Veins: Yes Respiratory Problems Chronic Obstructive Pulmonary Disease (COPD): No Asthma: Yes Smoking: No Smoking Cessation Counseling: No Smoking Exposure: No Stomache/Intestinal Problems Pancreatitis: Yes Obesity: Yes Genital/Urinary Problems Renal Disease: No Reproductive Problems Previous Pregnancies: Yes (4) Musculoskeletal Problems Arthritis: Yes Head,Eye,Nose,Throat Problems Cataracts: Yes Endocrine Problems Diabetes Mellitus Type 1: No Diabetes Mellitus Type 2: Yes Other Problems Hospitalization: Yes (surgery) Shingles: No Blood Transfusions: No Anesthesia Reactions: No Chicken Pox: Yes Cancer: No Subjective Visit Visit for: follow up visit, post op #2 and knee (RIGHT KNEE TKA ) Immunization / Flu Flu Vaccine in the Last 12 Months: Yes Flu Vaccine Exclusion Criteria: Already Received History of Present Illness Chief complaint: PRE-OP Date of injury / onset of symptoms: 3 YEARS Date of 1st surgery (if applicable): LEFT KNEE DONE Kay is a pleasant 63-year-old female with right knee pain for 3 years. She is doing well s/p R TKA 6 weeks Personal History Occupation: RETIRED Red flag PMH: none BMI Counceling provided: Yes Pain Pain level (0-10): 10 Pain duration: 2 WEEKS Pain location: anterior Pain quality: sharp and burning Pain timing: night and increases with activity Associated signs & symptoms: numbness and stiffness Ambulatory data Ambulatory device: walker Walking distance (minutes): 1 Treatments Number of previous injections: 0 Improvement with previous injections: No Number of Physical Therapy sessions: 2 (POST SURGERY PHYSICAL THREAPY ) Improvement with PT: Yes Improvement with NSAIDS: n/a Review of Systems Review of Systems: All systems negative unless otherwise noted in HPI.
[2024-11-17 10:57] VITALS: BP 117/79; PULSE 85; RESP 18; TEMP 36.6; O2SAT 96; BMI 34.1
== END 2024-11-17 10:56 | disposition home or self-care (01) ==
PROVIDERS: Supervising Provider Orthopaedic Surgery Adult Reconstructive Orthopaedic Surgery; Visit Provider Orthopaedic Surgery Adult Reconstructive Orthopaedic Surgery
DX: M17.11 Unilateral primary osteoarthritis, right knee (principal); M25.561 Pain in right knee; Z96.651 Presence of right artificial knee joint; I10 Essential (primary) hypertension; E78.00 Pure hypercholesterolemia, unspecified; I25.2 Old myocardial infarction; E11.9 Type 2 diabetes mellitus without complications; E66.9 Obesity, unspecified; Z71.3 Dietary counseling and surveillance; Z68.34 Body mass index [BMI] 34.0-34.9, adult
CPT/HCPCS: 73564; 99213; G0463

== ENCOUNTER 2024-12-22 10:04 | Outpatient (AMB) | payer MEDICAID, SELFPAY ==
--- NOTE | 2024-12-22 10:19 | PD.ORTHCLVIS ---
Vital signs 12/22/24 10:20 Height 1.65 m Height Method Measured Weight 96.7 kg Weight Measurement Method Standing Scale BMI 35.5 BP 132/84 H Blood Pressure Source Automatic Cuff Blood Pressure Location Left Upper Arm Position Sitting Respiration 18 Pulse 80 Pulse Source Monitor Temp 97.6 F Temp Source Temporal Artery Scan Pulse Oximetry (%) 96 Oxygen Delivery Method Room Air Med/Allergies Allergies & Medications Allergies No Known Drug Allergies Allergy (Verified 12/22/24 10:21) Medication Reconciliation atorvastatin 10 mg tablet 10 mg PO DAILY 10/04/24 [History Confirmed 12/22/24] telmisartan 40 mg tablet 40 mg PO DAILY 10/04/24 [History Confirmed 12/22/24] tirzepatide (weight loss) 2.5 mg/0.5 mL subcutaneous pen injector (Zepbound) 2.5 mg subcut .week 10/04/24 [History Confirmed 12/22/24] aspirin 81 mg tablet,delayed release 81 mg PO BID #60 tabs 10/06/24 [Rx Confirmed 12/22/24] doxycycline hyclate 100 mg tablet 100 mg PO BID #14 tabs 10/06/24 [Rx Confirmed 12/22/24] gabapentin 300 mg capsule 300 mg PO .qhs #30 caps 10/06/24 [Rx Confirmed 12/22/24] sennosides 8.6 mg-docusate sodium 50 mg tablet (Senna-S) 1 tab-cap PO QDAY #30 tabs 10/06/24 [Rx Confirmed 12/22/24] cyclobenzaprine 5 mg tablet 5 mg PO TID PRN muscle spasm #60 tabs 10/10/24 [Rx Confirmed 12/22/24] hydrocodone 5 mg-acetaminophen 325 mg tablet 1 tab PO Q6H PRN pain #28 tabs 10/15/24 [Rx Confirmed 12/22/24] Exam Exam Patient is in no acute distress and is cooperative with the examination today. Patient has a normal mood and affect. Breathing is nonlabored. In no respiratory distress. Bilateral extremities were evaluated and demonstrates sensation intact to light touch. Palpable pedal pulses are present. No significant edema is present. Left knee incisions clean dry intact. Range of motion 0 to 110 degrees. Right knee incision is c/d/i. ROM is 0-100 degrees Assessment and Plan Problem List (1) Arthritis of right knee: Status: Acute Plan: Patient is a 63-year-old female with right knee pain and right knee arthritis s/p R TKA. We will see her in approximately 3 months for routine follow-up Office Procedures GNS Level of Care Nursing/Assessment Patient Status: Established Patient Nursing Assessment/Reassesment: Medication Reconciliation, Orthostatic Vitals, Update PMH in EMR and Vital Signs Coordination of Care: Complex Care and Chronic Disease 1-5, Education Complex Pt/Fam, Consent,records obtained, informed consent, Results/Orders obtained and Staff clarify orders Established Patient Charge Established Patient Point Assignment: 105 Established Patient Point Charge: EP Level 3 (80-115) MA Intake Visit Data Collection New Patient or Established: Established Patient (seen at [facility] within 3 years) Reason for Visit:: 6 MONTH RIGHT TKA F/U Seen by Clinical Staff ONLY (RN/MA): No Personalized Living Manager Required: No PCP or OBGYN visit in last 3 months: Yes Hx Now: No Do You Feel Safe at Home: Yes Authorities Contacted: N/A Questionairres Past Medical History Past Medical History Have you ever been diagnosed with any of the following: Neurological Problems Seizures: No Cardiology Problems Myocardial Infarction: Yes (2015) Hypercholesterolemia: Yes Congestive Heart Failure: No Hypertension: Yes Varicose Veins: Yes Respiratory Problems Chronic Obstructive Pulmonary Disease (COPD): No Asthma: Yes Smoking: No Smoking Cessation Counseling: No Smoking Exposure: No Stomache/Intestinal Problems Pancreatitis: Yes Obesity: Yes Genital/Urinary Problems Renal Disease: No Reproductive Problems Previous Pregnancies: Yes (4) Musculoskeletal Problems Arthritis: Yes Head,Eye,Nose,Throat Problems Cataracts: Yes Endocrine Problems Diabetes Mellitus Type 1: No Diabetes Mellitus Type 2: Yes Other Problems Hospitalization: Yes (surgery) Shingles: No Blood Transfusions: No Anesthesia Reactions: No Chicken Pox: Yes Cancer: No Subjective Visit Visit for: follow up visit, post op #2, post op #3 and knee (RIGHT KNEE TKA ) Immunization / Flu Flu Vaccine in the Last 12 Months: Yes Flu Vaccine Exclusion Criteria: Already Received History of Present Illness Chief complaint: 6 MONTH RIGHT TKA F/U Date of injury / onset of symptoms: 3 YEARS Date of 1st surgery (if applicable): LEFT KNEE DONE Kay is a pleasant 63-year-old female with right knee pain for 3 years. She is doing well s/p R TKA 2-1/2 months ago Personal History Occupation: RETIRED Red flag PMH: none BMI Counceling provided: Yes Pain Pain level (0-10): 4 Pain duration: ON/OFF Pain location: anterior Pain quality: burning Pain timing: night and increases with activity Associated signs & symptoms: numbness and stiffness Ambulatory data Ambulatory device: none Walking distance (minutes): 1 Treatments Number of previous injections: 0 Improvement with previous injections: No Number of Physical Therapy sessions: 2 (POST SURGERY PHYSICAL THREAPY ) Improvement with PT: Yes Improvement with NSAIDS: n/a Review of Systems Review of Systems: All systems negative unless otherwise noted in HPI.
[2024-12-22 10:20] VITALS: BP 132/84; PULSE 80; RESP 18; TEMP 36.4; O2SAT 96; BMI 35.5
== END 2024-12-22 10:39 | disposition home or self-care (01) ==
LOC: HODSRG 10:04
PROVIDERS: Supervising Provider Orthopaedic Surgery Adult Reconstructive Orthopaedic Surgery; Visit Provider Orthopaedic Surgery Adult Reconstructive Orthopaedic Surgery
DX: M17.11 Unilateral primary osteoarthritis, right knee (principal); M25.561 Pain in right knee; Z96.651 Presence of right artificial knee joint; I10 Essential (primary) hypertension; E78.00 Pure hypercholesterolemia, unspecified; E11.9 Type 2 diabetes mellitus without complications; I25.2 Old myocardial infarction; E66.9 Obesity, unspecified; Z71.3 Dietary counseling and surveillance; Z68.35 Body mass index [BMI] 35.0-35.9, adult
CPT/HCPCS: 99213; G0463

== ENCOUNTER 2025-03-30 09:47 | Outpatient (AMB) | payer MEDICAID, SELFPAY ==
--- NOTE | 2025-03-30 10:02 | PD.ORTHCLVIS ---
Vital signs 03/30/25 10:03 Height 1.65 m Height Method Stated Weight 93.015 kg Weight Measurement Method Standing Scale BMI 34.1 BP 143/89 H Blood Pressure Source Automatic Cuff Blood Pressure Location Right Upper Arm Position Sitting Respiration 18 Pulse 85 Pulse Source Monitor Temp 98.2 F Temp Source Temporal Artery Scan Pulse Oximetry (%) 96 Oxygen Delivery Method Room Air Med/Allergies Allergies & Medications Allergies No Known Drug Allergies Allergy (Verified 03/30/25 10:04) Medication Reconciliation atorvastatin 10 mg tablet 10 mg PO DAILY 10/04/24 [History Confirmed 03/30/25] telmisartan 40 mg tablet 40 mg PO DAILY 10/04/24 [History Confirmed 03/30/25] tirzepatide (weight loss) 2.5 mg/0.5 mL subcutaneous pen injector (Zepbound) 2.5 mg subcut .week 10/04/24 [History Confirmed 03/30/25] aspirin 81 mg tablet,delayed release 81 mg PO BID #60 tabs 10/06/24 [Rx Confirmed 03/30/25] doxycycline hyclate 100 mg tablet 100 mg PO BID #14 tabs 10/06/24 [Rx Confirmed 03/30/25] gabapentin 300 mg capsule 300 mg PO .qhs #30 caps 10/06/24 [Rx Confirmed 03/30/25] sennosides 8.6 mg-docusate sodium 50 mg tablet (Senna-S) 1 tab-cap PO QDAY #30 tabs 10/06/24 [Rx Confirmed 03/30/25] cyclobenzaprine 5 mg tablet 5 mg PO TID PRN muscle spasm #60 tabs 10/10/24 [Rx Confirmed 03/30/25] hydrocodone 5 mg-acetaminophen 325 mg tablet 1 tab PO Q6H PRN pain #28 tabs 10/15/24 [Rx Confirmed 03/30/25] Exam Exam Patient is in no acute distress and is cooperative with the examination today. Patient has a normal mood and affect. Breathing is nonlabored. In no respiratory distress. Bilateral extremities were evaluated and demonstrates sensation intact to light touch. Palpable pedal pulses are present. No significant edema is present. Left knee incisions clean dry intact. Range of motion 0 to 110 degrees. Right knee incision is c/d/i. ROM is 0-100 degrees Assessment and Plan Problem List (1) Arthritis of right knee: Status: Acute Plan: Patient is a 63-year-old female with right knee pain and right knee arthritis s/p R TKA. We will see her in approximately 6 months for routine follow-up Office Procedures GNS Level of Care Nursing/Assessment Patient Status: Established Patient Nursing Assessment/Reassesment: Medication Reconciliation, Update PMH in EMR and Vital Signs Coordination of Care: Complex Care and Chronic Disease 1-5, Education Complex Pt/Fam, Consent,records obtained, informed consent, Results/Orders obtained and Staff clarify orders Established Patient Charge Established Patient Point Assignment: 95 Established Patient Point Charge: Level 3 (80-115) MA Intake Visit Data Collection New Patient or Established: Established Patient (seen at [facility] within 3 years) Reason for Visit:: 6 MONTH TKA F//U Seen by Clinical Staff ONLY (RN/MA): No Verbal consent obtained for Telemed visit?: No Disabilities Services Officer Required: No PCP or OBGYN visit in last 3 months: Yes Hx Now: No Do You Feel Safe at Home: Yes Authorities Contacted: N/A Questionairres Past Medical History Past Medical History Have you ever been diagnosed with any of the following: Neurological Problems Seizures: No Cardiology Problems Myocardial Infarction: Yes (2015) Hypercholesterolemia: Yes Congestive Heart Failure: No Hypertension: Yes Varicose Veins: Yes Respiratory Problems Chronic Obstructive Pulmonary Disease (COPD): No Asthma: Yes Smoking: No Smoking Cessation Counseling: No Smoking Exposure: No Stomache/Intestinal Problems Pancreatitis: Yes Obesity: Yes Genital/Urinary Problems Renal Disease: No Reproductive Problems Previous Pregnancies: Yes (4) Musculoskeletal Problems Arthritis: Yes Head,Eye,Nose,Throat Problems Cataracts: Yes Endocrine Problems Diabetes Mellitus Type 1: No Diabetes Mellitus Type 2: Yes Other Problems Hospitalization: Yes (surgery) Shingles: No Blood Transfusions: No Anesthesia Reactions: No Chicken Pox: Yes Cancer: No Subjective Visit Visit for: follow up visit, post op #2, post op #3 and knee (RIGHT KNEE TKA ) Immunization / Flu Flu Vaccine in the Last 12 Months: Yes Flu Vaccine Exclusion Criteria: Already Received History of Present Illness Chief complaint: 6 MONTH RIGHT TKA F/U Date of injury / onset of symptoms: 3 YEARS Date of 1st surgery (if applicable): LEFT KNEE DONE Kay is a pleasant 63-year-old female with right knee pain for 3 years. She is doing well s/p R TKA 6 months ago Personal History Occupation: RETIRED Red flag PMH: none BMI Counceling provided: Yes Pain Pain level (0-10): 4 Pain duration: ON/OFF Pain location: anterior Pain quality: burning Pain timing: night and increases with activity Associated signs & symptoms: numbness and stiffness Ambulatory data Ambulatory device: none Walking distance (minutes): 1 Treatments Number of previous injections: 0 Improvement with previous injections: No Number of Physical Therapy sessions: 2 (POST SURGERY PHYSICAL THREAPY ) Improvement with PT: Yes Improvement with NSAIDS: n/a Review of Systems Review of Systems: All systems negative unless otherwise noted in HPI.
[2025-03-30 10:03] VITALS: BP 143/89; PULSE 85; RESP 18; TEMP 36.8; O2SAT 96; BMI 34.1
== END 2025-03-30 10:06 | disposition home or self-care (01) ==
LOC: HODSRG 09:47
PROVIDERS: Supervising Provider Orthopaedic Surgery Adult Reconstructive Orthopaedic Surgery; Visit Provider Orthopaedic Surgery Adult Reconstructive Orthopaedic Surgery
DX: Z47.1 Aftercare following joint replacement surgery (principal); Z96.651 Presence of right artificial knee joint; M25.561 Pain in right knee; I10 Essential (primary) hypertension; E66.9 Obesity, unspecified; Z68.34 Body mass index [BMI] 34.0-34.9, adult
CPT/HCPCS: 99213; G0463